=== PATIENT | male | born 1980 | race Caucasian/White ===

== ENCOUNTER → 2022-08-12 | Outpatient (CLI) | payer OTHER ==
[2022-08-12 08:33] LABS: BASOPHILS % (AUTO) 1 % (0-10); EOSINOPHILS # (AUTO) 0.1 10^3/uL (0.0-0.3); EOSINOPHILS % (AUTO) 2 % (0-10); HEMATOCRIT 46 % (40-54); HEMOGLOBIN 15.8 g/dL (13.3-17.7); LYMPHOCYTES # (AUTO) 1.8 10^3/uL (1.0-4.0); LYMPHOCYTES % (AUTO) 27 % (12-44); MEAN CORPUSCULAR HEMOGLOBIN 29 pg (25-34); MEAN CORPUSCULAR HGB CONC 34 g/dL (32-36); MEAN CORPUSCULAR VOLUME 84 fL (80-99); MEAN PLATELET VOLUME 10.8 fL (9.0-12.2); MONOCYTES # (AUTO) 0.5 10^3/uL (0.0-1.0); MONOCYTES % (AUTO) 8 % (0-12); NEUTROPHILS % (AUTO) 62 % (42-75); PLATELET COUNT 216 10^3/uL (130-400); WHITE BLOOD COUNT 6.5 10^3/uL (4.3-11.0)
[2022-08-12 10:26] LABS: ALBUMIN 4.5 GM/DL (3.2-4.5); BILIRUBIN,TOTAL 0.3 MG/DL (0.1-1.0); CALCIUM 9.2 MG/DL (8.5-10.1); CREATININE SERUM 0.92 MG/DL (0.60-1.30); POTASSIUM 4.3 MMOL/L (3.6-5.0); TOTAL PROTEIN 7.4 GM/DL (6.4-8.2)
== END ==
LOC: LAB FS 07:59
PROVIDERS: ATTEND Internal Medicine
DX: Z00.00 Encounter for general adult medical examination without abnormal findings (principal); Z79.899 Other long term (current) drug therapy
CPT/HCPCS: 36415; 80053; 80061; 84443; 85025

== ENCOUNTER 2022-10-25 12:19 | Emergency (ER) | payer OTHER ==
[~2022-10-25] VITALS: Ht 185 cm; Wt 109.0 kg
[2022-10-25 12:32] VITALS: BP 140/80
[2022-10-25 12:37] LABS: BASOPHILS % (AUTO) 1 % (0-10); EOSINOPHILS # (AUTO) 0.1 10^3/uL (0.0-0.3); EOSINOPHILS % (AUTO) 1 % (0-10); HEMATOCRIT 49 % (40-54); HEMOGLOBIN 16.7 g/dL (13.3-17.7); LYMPHOCYTES # (AUTO) 2.4 10^3/uL (1.0-4.0); LYMPHOCYTES % (AUTO) 28 % (12-44); MEAN CORPUSCULAR HEMOGLOBIN 28 pg (25-34); MEAN CORPUSCULAR HGB CONC 34 g/dL (32-36); MEAN CORPUSCULAR VOLUME 83 fL (80-99); MEAN PLATELET VOLUME 10.6 fL (9.0-12.2); MONOCYTES # (AUTO) 0.7 10^3/uL (0.0-1.0); MONOCYTES % (AUTO) 8 % (0-12); NEUTROPHILS # (AUTO) 5.3 10^3/uL (1.8-7.8); NEUTROPHILS % (AUTO) 62 % (42-75); PLATELET COUNT 267 10^3/uL (130-400); WHITE BLOOD COUNT 8.5 10^3/uL (4.3-11.0)
[2022-10-25 12:58] LABS: ALANINE AMINOTRANSFERASE 58 U/L (0-55); ALKALINE PHOSPHATASE 65 U/L (40-136); BILIRUBIN,TOTAL 0.5 MG/DL (0.1-1.0); BUN/CREATININE RATIO 12; CALCIUM 10.1 MG/DL (8.5-10.1); CARBON DIOXIDE 22 MMOL/L (21-32); CHLORIDE 100 MMOL/L (98-107); GFR ESTIMATED 86; GLUCOSE 102 MG/DL (70-105); SODIUM 138 MMOL/L (135-145)
[2022-10-25 12:59] LABS: ALBUMIN 4.8 GM/DL (3.2-4.5); TOTAL PROTEIN 7.8 GM/DL (6.4-8.2)
--- NOTE | 2022-10-25 13:05 | Diagnostic Imaging Report ---
EXAMINATION: Chest 1 view HISTORY: Chest pain. COMPARISON: None available. FINDINGS: The lung volumes are normal. No focal consolidation is seen. No large pleural effusion or pneumothorax is seen. The cardiomediastinal silhouette is normal in size and contour. No acute osseous abnormality is seen. IMPRESSION: 1. No acute pleuroparenchymal process. Dictated by: Dictated on workstation # [id number]
--- NOTE | 2022-10-25 14:58 | ED Cardiac General ---
History of Present Illness General Chief Complaint: Chest Pain Stated Complaint: CHEST PAIN Nursing Triage Note: Patient has been brought to ER by EMS with cc of chest pain. Per the EMS reports the patient was in a meeting and got up from his desk when he became light headed, dizzy, and had chest pain. Patient reports that he has been having intermittant episodes of chest pain over the past 2 months - the pain will go away in a few minutes - today the pain continued. Patient recieved zofran, 4 baby aspirin, and 2 nitro glycerin tabs by EMS prior to arrival to ER. Patient arrived to ER pain 11/25. Source: patient Exam Limitations: no limitations History of Present Illness Date Seen by Provider: Oct 25, 2022 Time Seen by Provider: 12:20 Initial Comments Patient is a 42-year-old male with history of anxiety and reflux who presents with episodic chest pain today with 3 episodes occurring over approximately 90 minutes. Chest pain was left-sided nonexertional and rated moderate to severe. Symptoms wax and wane and last for several minutes. Patient reports feeling dizzy lightheaded and nauseated at times chest pain occurred. He was given nitroglycerin x2 with by EMS with significant relief of symptoms and full dose of aspirin. Patient states he has had similar episodes of chest pain over the past 2 months. He has not been evaluated by PCP or referred to a contact lens fitter for this condition. Patient is currently resting complaining of mild headache only after receiving nitroglycerin Timing/Duration: 1 hour Severity: mild Location: other Activities at Onset: other Prior CP/Workup: other Modifying Factors: improves with other Associated Systoms: Other Allergies and Home Medications Patient Home Medication List Home Medication List Reviewed: Yes Review of Systems Review of Systems Constitutional: see HPI EENTM: See HPI Respiratory: See HPI Cardiovascular: See HPI Gastrointestinal: See HPI Genitourinary: See HPI Musculoskeletal: see HPI Skin: see HPI Psychiatric/Neurological: See HPI Endocrine: See HPI Hematologic/Lymphatic: See HPI All Other Systems Reviewed Negative Unless Noted: No Past Dpkcszi-Lpzdof-Klffcu Hx Patient Social History Tobacco Use?: No Use of E-Cig and/or Vaping dev: No Substance use?: No Alcohol Use?: Yes Alcohol Frequency: Rarely Physical Exam Vital Signs Vital Signs - First Documented 10/25/22 12:32 Temp 36.6 Pulse 93 Resp 16 B/P (MAP) 140/80 (100) Pulse Ox 96 O2 Delivery Room Air Capillary Refill : Height, Weight, BMI Height: '" Weight: lbs. oz. kg; 31.00 BMI Method: General Appearance: No Apparent Distress, WD/WN HEENT: PERRL/EOMI, TMs Normal, Pharynx Normal Neck: Full Range of Motion, Normal Inspection, Supple Respiratory: Lungs Clear, Normal Breath Sounds Cardiovascular: Regular Rate, Rhythm Gastrointestinal: Non Tender, Soft Neurologic/Psychiatric: Alert, Oriented x3 Skin: Normal Color, Warm/Dry Lymphatic: No Adenopathy Focused Exam Sepsis Stage: Ruled Out Progress/Results/Core Measures Results/Orders Lab Results Laboratory Tests Test 10/25/22 12:20 Range/Units White Blood Count 8.5 4.3-11.0 10^3/uL Red Blood Count 5.88 H 4.30-5.52 10^6/uL Hemoglobin 16.7 13.3-17.7 g/dL Hematocrit 49 40-54 % Mean Corpuscular Volume 83 80-99 fL Mean Corpuscular Hemoglobin 28 25-34 pg Mean Corpuscular Hemoglobin Concent 34 32-36 g/dL Red Cell Distribution Width 13.3 10.0-14.5 % Platelet Count 267 130-400 10^3/uL Mean Platelet Volume 10.6 9.0-12.2 fL Immature Granulocyte % (Auto) 1 % Neutrophils (%) (Auto) 62 42-75 % Lymphocytes (%) (Auto) 28 12-44 % Monocytes (%) (Auto) 8 0-12 % Eosinophils (%) (Auto) 1 0-10 % Basophils (%) (Auto) 1 0-10 % Neutrophils # (Auto) 5.3 1.8-7.8 10^3/uL Lymphocytes # (Auto) 2.4 1.0-4.0 10^3/uL Monocytes # (Auto) 0.7 0.0-1.0 10^3/uL Eosinophils # (Auto) 0.1 0.0-0.3 10^3/uL Basophils # (Auto) 0.0 0.0-0.1 10^3/uL Immature Granulocyte # (Auto) 0.1 0.0-0.1 10^3/uL D-Dimer 0.17 0.00-0.49 UG/ML Sodium Level 138 135-145 MMOL/L Potassium Level 4.0 3.6-5.0 MMOL/L Chloride Level 100 98-107 MMOL/L Carbon Dioxide Level 22 21-32 MMOL/L Anion Gap 16 H 5-14 MMOL/L Blood Urea Nitrogen 13 7-18 MG/DL Creatinine 1.10 0.60-1.30 MG/DL Estimat Glomerular Filtration Rate 86 BUN/Creatinine Ratio 12 Glucose Level 102 70-105 MG/DL Calcium Level 10.1 8.5-10.1 MG/DL Corrected Calcium 8.5-10.1 MG/DL Total Bilirubin 0.5 0.1-1.0 MG/DL Aspartate Amino Transf (AST/SGOT) 31 5-34 U/L Alanine Aminotransferase (ALT/SGPT) 58 H 0-55 U/L Alkaline Phosphatase 65 40-136 U/L Troponin I < 0.30 <0.30 NG/ML Total Protein 7.8 6.4-8.2 GM/DL Albumin 4.8 H 3.2-4.5 GM/DL My Orders Orders - EDEL SIMMS DO Cbc With Automated Diff (10/25/22 12:26) Comprehensive Metabolic Panel (10/25/22 12:26) Troponin I Fs (10/25/22 12:26) Ekg Tracing (10/25/22 12:26) Chest 1 View Ap/Pa Only (10/25/22 12:26) Fibrin Degradation Products (10/25/22 12:26) Cbc With Automated Diff (10/25/22 12:51) Fibrin Degradation Products (10/25/22 12:51) Ed Admission (Communication) (10/25/22 14:14) Vital Signs/I&O 10/25/22 12:32 Temp 36.6 Pulse 93 Resp 16 B/P (MAP) 140/80 (100) Pulse Ox 96 O2 Delivery Room Air Blood Pressure Mean: 100 Departure Communication (Admissions) Chest x-ray: No acute cardiopulmonary disease per radiology report. EKG: Normal sinus rhythm, rate 87, no acute ST ST-T wave changes. Nonspecific changes noted on EKG. Escalating episodic atypical chest pain relieved with nitroglycerin prior to ED arrival. Symptoms resolved. EKG nonspecific changes only with negative troponin. Hospital admission strongly recommended for inpatient stress testing. Patient initially agrees to hospitalization and Dr. Ramirez accepts. However, patient was uncomfortable waiting in the emergency department and opted to be discharged from the ER and follow-up with a local PCP and contact lens fitter. Risk benefits versus alternatives explained in detail with the patient verbalizes understanding and accepts increased health risk of declining hospitalization. Patient will be discharged home per his request. Attempts were made to contact the on-call contact lens fitter to schedule outpatient testing were unsuccessful. Patient is instructed to follow-up with his PCP to coordinate outpatient testing. He is further instructed to return to the emergency department should his symptoms return or if he changes his mind regarding hospitalization Impression Primary Impression: Chest pain Disposition: 01 HOME, SELF-CARE Condition: Stable Departure-Patient Inst. Decision time for Depature: 15:05 Referrals: JUAN SILVESTRE MD (PCP) Primary Care Physician Patient Instructions: Chest Pain, Adult ED Add. Discharge Instructions: You were evaluated in the emergency department for chest pain. An EKG lab and imaging studies were performed and are nondiagnostic. The exact cause of your symptoms have not been determined but may be related to underlying coronary artery disease. Please take 2 baby aspirin, daily antacid and anxiety medications. Contact your PCP upon discharge from the emergency department to arrange for outpatient stress testing. In the meantime, if you develop new or concerning symptoms or change your mind regarding hospitalization return to the emergency department. All discharge instructions reviewed with patient and/or family. Voiced u nderstanding. EDEL SIMMS DO Oct 25, 2022 14:58
== END 2022-10-25 15:10 | disposition home or self-care (01) ==
LOC: EDUNIT# 12:19 → ER FS 12:20
DX: R07.89 Other chest pain (principal)
CPT/HCPCS: 36415; 71045; 80053; 84484; 85025; 85379; 93005

== ENCOUNTER → 2022-10-27 | Outpatient (CLI) | payer OTHER ==
[2022-10-27 12:30] VITALS: BP 132/87
== END ==
LOC: CARD 11:14
PROVIDERS: ATTEND Internal Medicine Cardiovascular Disease
DX: R07.9 Chest pain, unspecified (principal)
CPT/HCPCS: C8929; C8930; 93306